=== PATIENT | female | born 1980 | race Caucasian/White ===

== ENCOUNTER → 2018-11-27 12:56 | Outpatient (CLI) | payer OTHER, SELFPAY ==
--- NOTE | 2018-11-27 12:59 | US_ITS ---
US transvaginal HISTORY: ITS.REASON: pelvic pain ORDERING PHYSICIAN: Julio Ferreira MD PATIENT AGE: 38 years Comparison: 11/23/2015 FINDINGS: The uterus is 7 x 3 x 4 cm with a combined endometrial thickness of 3 mm. In the fundus of the uterus there is a area of heterogeneous echogenicity measuring 2.7 x 2.5 cm suggesting a small uterine fibroid. The ovaries have an unremarkable appearance with bilateral ovarian blood flow. No cul-de-sac fluid. IMPRESSION: Probable uterine fibroid which appears unchanged when compared to the previous study otherwise negative pelvic ultrasound
== END ==
PROVIDERS: PCP Family Medicine; Visit Provider Obstetrics & Gynecology
DX: R10.2 Pelvic and perineal pain (principal)
CPT/HCPCS: 76830

== ENCOUNTER → 2018-12-17 09:14 | Outpatient (CLI) | payer OTHER, SELFPAY ==
--- NOTE | 2018-12-17 09:18 | MM_ITS ---
MM Dig screening mamm BI w/CAD CAD Screening COMPARISON: None, this is baseline INDICATION: There is a history of breast cancer in the patient's paternal grandmother and paternal aunt TECHNIQUE: Standard CC and MLO images were obtained. R2 CAD reviewed. FINDINGS: Scattered fibroglandular densities are seen in both breast on a background of fatty type breast parenchyma. There is slightly increased asymmetrically appearing glandular densities in the upper outer quadrant right breast. This likely is normal variation and glandular parenchyma however since is the baseline study recommend patient return for spot compression views of the area marked on the film there are no suspicious microcalcifications. IMPRESSION: Fibrofatty parenchyma with questionable asymmetric glandular parenchyma densities right breast versus normal variation recommend patient return for additional imaging BI-RADS Category: 0 Need Additional Imaging Evaluation RECOMMENDED FOLLOW-UP: IMM - IMMEDIATE FOLLOW-UP RECOMMENDED (A letter has been sent to the patient regarding results of the study.)
== END ==
PROVIDERS: PCP Family Medicine; Visit Provider Obstetrics & Gynecology
DX: Z12.31 Encounter for screening mammogram for malignant neoplasm of breast (principal)
CPT/HCPCS: 77067

== ENCOUNTER → 2018-12-22 09:45 | Outpatient (CLI) | payer OTHER, SELFPAY ==
[2018-12-22 09:49] LABS: Microscopic, Urine URINE MICROSCOPIC (MICROSCOPIC)
[2018-12-22 10:06] LABS: Basophils % 0.3 % (0.1-2.0); Eosinophils # 0.3 K/mm3 (0.0-0.4); Eosinophils % 3.5 % (0.1-12.0); Hematocrit 45.6 % (37.0-47.0); Hemoglobin 14.1 g/dL (12.2-16.2); Lymphocytes # 1.4 K/mm3 (0.7-4.5); Lymphocytes % 16.1 % (10-50); Mean Corpuscular HGB Conc 30.9 g/dL (31.8-35.4); Mean Corpuscular Hemoglobin 29.3 pg (27.0-31.2); Mean Corpuscular Volume 94.8 fl (81-99); Mean Platelet Volume 8.2 fl (7.4-10.4); Monocytes # 0.4 K/mm3 (0.1-1.0); Monocytes % 4.5 % (1.7-9.3); Neutrophils # 6.8 K/mm3 (1.8-7.8); Neutrophils % 75.7 % (37.0-80.0); Platelet Count 170 K/mm3 (142-424); Red Blood Count 4.81 M/mm3 (4.20-5.40)
[2018-12-22 10:10] LABS: Appearance,Urine CLEAR (Clear); Bilirubin,Urine Negative (Negative); Blood, Urine TRACE-I (Negative); Color,Urine YELLOW (Yellow); Glucose,Urine (UA) Negative (Negative); Ketones,Urine Negative (Negative); Leukocyte Esterase,Urine Negative (Negative); Nitrate,Urine Negative (Negative); PH,Urine 6.5 (5.0-8.5); Protein,Urine Negative (Negative); Urobilinogen,Urine 0.2 EU/dl (0.2)
[2018-12-22 10:18] LABS: Urine Pregnancy, HCG Qual. Negative (Negative)
[2018-12-22 10:24] LABS: Bacteria,Urine Trace /lpf; WBC,Urine Occasional #/hpf (0-3)
[2018-12-22 10:25] LABS: Mucus,Urine Trace /lpf
[2018-12-22 11:38] LABS: Alanine Aminotransferase 41 U/L (12-78); Albumin Level 3.4 gm/dL (3.4-5.0); Albumin/Globulin Ratio 1.1 (1.1-1.8); Alkaline Phosphatase 114 U/L (46-116); Anion Gap 14.2 mEq/L (5-15); Aspartate Amino Transferase 13 U/L (15-37); Bilirubin,Total 0.3 mg/dL (0.2-1.0); Blood Urea Nitrogen 14 mg/dL (7-18); Calcium 8.8 mg/dL (8.5-10.1); Carbon Dioxide 27 mmol/L (21.0-32.0); Chloride 105 mmol/L (98-107); Creatinine,Serum 0.88 mg/dL (0.55-1.02); Estimated Glomerular Filt Rate 72 ml/min (>60); GFR (African American) 87 ML/MIN (>60); Globulin 3.2 gm/dl (1.3-3.2); Glucose 97 mg/dL (74-106); Potassium 4.2 mmoL/L (3.5-5.1); Sodium 142 mmol/L (136-145); Total Protein,Serum 6.6 gm/dL (6.4-8.2)
[2018-12-22 11:49] LABS: Thyroid Stimulating Hormone 2.61 uIU/ml (0.358-3.740)
[2018-12-23 17:48] LABS: FSH 4.4 mIU/mL (.); LH 3.4 mIU/mL (.)
[2018-12-24 19:11] LABS: Testosterone,Free 1.4 pg/mL (0.0-4.2)
== END ==
PROVIDERS: Visit Provider Obstetrics & Gynecology
DX: Z01.818 Encounter for other preprocedural examination (principal); N93.8 Other specified abnormal uterine and vaginal bleeding
CPT/HCPCS: 36415; 80053; 81001; 81025; 83001; 83002; 84402; 84443; 85025

== ENCOUNTER → 2019-01-08 13:16 | Outpatient (CLI) | payer OTHER, SELFPAY ==
--- NOTE | 2019-01-08 13:18 | MM_ITS ---
MM Dig mamm DX unilat RT CAD COMPARISON: Baseline digital mammogram with CAD 12/17/2018 INDICATION: Additional views of possible asymmetric densities right breast TECHNIQUE: Spot compression MLO and CC views and 90 degrees lateral view. FINDINGS: The additional views appear to suggest an area of asymmetric but normal fibroglandular densities upper outer quadrant. There is no persistent or suspicious lesion identified on the additional views. IMPRESSION: Essentially negative problem-solving views BI-RADS Category: 1 Negative RECOMMENDED FOLLOW-UP: 1YR - 1 YEAR FOLLOW-UP (A letter has been sent to the patient regarding results of the study.)
== END ==
PROVIDERS: PCP Family Medicine; Visit Provider Obstetrics & Gynecology
DX: R92.8 Other abnormal and inconclusive findings on diagnostic imaging of breast (principal)
CPT/HCPCS: 77065

== ENCOUNTER → 2019-01-19 09:49 | Outpatient (CLI) | payer OTHER, SELFPAY ==
--- NOTE | 2019-01-19 09:50 | US_ITS ---
US breast RT complete Ordering Physician: Julio Ferreira MD Patient Age: 38 years: Female HISTORY: ITS.REASON: BREAST PAIN TECHNIQUE: Ultrasound right breast including axillary survey/MW COMPARISON : Mammogram 01/08/2019 & 12/17/2018 FINDINGS Survey of the entire right breast was performed including axillary imaging Would only note a small cystic area at 10:00 at the upper outer quadrant right breast. This measures up to 6.9 mm size . Moderate wall thickness. Overall benign appearance. This may correspond with some minimal nodularity at the right breast seen on previous studies. If pain persist persist you may want to consider a follow-up mammogram and ultrasound 6 months. Otherwise one year the adequate.. As you are aware, pain arises from multiple other causes and does not indicate underlying neoplasm but still warrants attention. IMPRESSION: Ultrasound reveals a small 6.8 x 4.7 mm cystic area at 10:00 right breast. This corresponds with some minimal nodularity here on recent mammogram. Follow up mammogram 1 year adequate (Although if breast pain should persist might consider 6-8 month follow-up right mammogram & ultrasound) BI-RADS 2. Benign appearing findings RECOMMENDATION.:. Follow-up mammogram 1 year. Although if breast pain should persist might consider 6 month follow-up mammogram ultrasound
== END ==
PROVIDERS: PCP Family Medicine; Visit Provider Obstetrics & Gynecology
DX: N64.4 Mastodynia (principal)
CPT/HCPCS: 76641

== ENCOUNTER → 2019-08-11 10:12 | Outpatient (CLI) | payer MEDICAID, SELFPAY ==
--- NOTE | 2019-08-11 10:12 | US_ITS ---
PROCEDURE: US BREAST RT COMPLETE CLINICAL INDICATION: 6-monthh f/u Follow-up breast abnormality COMPARISON: DIG MAMM-DX UNI-RT from 01/08/2019 BREASTRT US breast RT complete from 01/19/2019 FINDINGS: In the outer aspect right breast there is a 4 x 5 mm hypoechoic abnormality which may represent a complex cyst wider than tall with questionable through transmission of sound.. Overall not significantly changed IMPRESSION: BI-RADS category 3 probably benign finding/complex cyst 10 o'clock right breast. Recommend continued six-month follow-up. At that time bilateral mammogram is due as well. Dictated by: Alessandro Wood MD 08/23/2019 09:32 Electronically signed by Alessandro Wood MD in [place] 08/23/2019 09:32
== END ==
PROVIDERS: PCP Family Medicine; Visit Provider Obstetrics & Gynecology
DX: R92.8 Other abnormal and inconclusive findings on diagnostic imaging of breast (principal)
CPT/HCPCS: 76641

== ENCOUNTER → 2020-02-23 14:22 | Outpatient (CLI) | payer MEDICAID, SELFPAY ==
--- NOTE | 2020-02-23 14:22 | MM_ITS ---
PROCEDURE: MM DIG MAMM BI DX W/CAD Digital Breast Tomosynthesis Included CLINICAL INDICATION: Dx Mamm right breast- abnormal mamm COMPARISON: MG DIG MAMM-SCREEN CHARLY from 12/17/2018 MG DIG MAMM-DX UNI-RT from 01/08/2019 US US BREAST RT COMPLETE from 03/01/2020 TECHNIQUE: Standard CC and MLO images and 3D Tomosynthesis was obtained. R2 CAD reviewed. Spot compression views of the right breast were obtained. FINDINGS: In both breasts. Again noted is the asymmetric density upper-outer quadrant right breast with slightly irregular borders. Terrance images however demonstrate well-defined smooth borders. The lesion is unchanged in size and overall appearance from the previous 2 mammograms. Ultrasound performed same date showed a stable small hypoechoic lesion with internal echoes likely representing a complex cyst. There is no new or suspicious lesion in either breast and no suspicious microcalcifications. IMPRESSION: Fibrofatty parenchyma with no suspicious lesions seen BI-RAD Category: 2 Benign Finding(s) FOLLOW-UP: 1YR 1 Year Follow-up (A letter has been sent to the patient regarding results of the study.) Dictated by: Dr. Srikanth Tang MD 03/03/2020 10:21 Dr. Srikanth Tang MD in [place] 03/03/2020 10:21
== END ==
PROVIDERS: PCP Family Medicine; Visit Provider Obstetrics & Gynecology
DX: R92.8 Other abnormal and inconclusive findings on diagnostic imaging of breast (principal)
CPT/HCPCS: 77062; 77066; G0279

== ENCOUNTER → 2020-03-01 09:11 | Outpatient (CLI) | payer MEDICAID, SELFPAY ==
--- NOTE | 2020-03-01 09:11 | US_ITS ---
PROCEDURE: US BREAST RT COMPLETE CLINICAL INDICATION: US Right Breast-Abnormal Mamm COMPARISON: US US BREAST RT COMPLETE from 08/11/2019 FINDINGS: Noted is a small hypoechoic oval lesion wider than tall 10 o'clock position outer breast measuring 0.8 x 0.5 by 0.6 cm. This shows internal echoes as seen on the previous exam. This likely is a complex cyst and is stable in overall appearance compared to the previous study. There are 2 normal appearing nodes in the axilla. IMPRESSION: Stable benign-appearing and likely complex cyst and no further evaluation is indicated at this time. Dictated by: Dr. Srikanth Tang MD 03/03/2020 10:40 Dr. Srikanth Tang MD in [place] 03/03/2020 10:40
== END ==
PROVIDERS: PCP Family Medicine; Visit Provider Obstetrics & Gynecology
DX: R92.8 Other abnormal and inconclusive findings on diagnostic imaging of breast (principal)
CPT/HCPCS: 76641

== ENCOUNTER → 2021-04-26 12:24 | Outpatient (CLI) | payer MEDICAID, SELFPAY ==
--- NOTE | 2021-04-26 12:28 | MM_ITS ---
PROCEDURE: MM DIG SCREENING MAMM BI W/CAD Digital Breast Tomosynthesis Included CLINICAL INDICATION: screening mammogram There is a history of breast cancer in the patient's paternal grandmother and paternal aunt COMPARISON: MG DIG MAMM-SCREEN CHARLY from 12/17/2018 MG DIG MAMM-DX UNI-RT from 01/08/2019 MG MM DIG MAMM BI DX W/CAD from 02/23/2020 TECHNIQUE: Standard CC and MLO images and 3D Tomosynthesis was obtained. R2 CAD reviewed. FINDINGS: The breasts are composed primarily of fat with minimal scattered fibroglandular densities throughout each breast. There is a stable asymmetric density upper-outer quadrant right breast which was shown to be secondary to a complex cyst on previous ultrasound exam. This is stable on mammograms dating back to 12/17/2018. However there is a new asymmetric density upper-outer quadrant left breast with somewhat irregular borders. Recommend the patient return for spot compression views and ultrasound for additional evaluation. There are no suspicious microcalcifications. IMPRESSION: Fatty type breast parenchyma with new slightly suspicious asymmetric density left breast BI-RAD Category: 0 Need Additional Imaging Evaluation FOLLOW-UP: IMM Immediate Follow-up Recommended (A letter has been sent to the patient regarding results of the study.) Dictated by: Dr. Srikanth Tang MD 04/27/2021 13:52 Dr. Srikanth Tang MD in [place] 04/27/2021 13:52
== END ==
PROVIDERS: PCP Family Medicine; Visit Provider Obstetrics & Gynecology
DX: Z12.31 Encounter for screening mammogram for malignant neoplasm of breast (principal)
CPT/HCPCS: 77063; 77067

== ENCOUNTER → 2021-06-12 13:27 | Outpatient (CLI) | payer MEDICAID, SELFPAY ==
--- NOTE | 2021-06-12 13:28 | MM_ITS ---
PROCEDURE INFORMATION: Exam: US Left Breast, Complete MG Left Diagnostic Breast Tomosynthesis Exam date and time: 06/12/2021 1:28 PM Age: 40 years old Clinical indication: Patient recalled for further evaluation a questionable left asymmetric density TECHNIQUE: Imaging protocol: Complete ultrasound of all four quadrants of the Left breast and the retroareolar regions, including ultrasound of the axilla when performed. Left Diagnostic tomosynthesis and 2D mammography including computer-aided detection (CAD) when performed. Unilateral or bilateral exam. COMPARISON: 1. MG MM DIG SCREENING MAMM BI W/CAD 04/26/2021 1:02 PM 2. MG MM DIG MAMM BI DX W/CAD 02/23/2020 2:33 PM FINDINGS: MAMMOGRAPHY: Digital diagnostic spot compression views of the left breast and repeat complete left mammogram in the CC and 90 degree lateral projections do not demonstrate any definitive persistent mass lesion in 2 projections. No suspicious asymmetries are identified. No irregular masses are seen. ULTRASOUND: Sonographic images of the left breast including the retroareolar region, all 4 quadrants and the axilla do not demonstrate any solid masses. Incidental 0.4 cm cyst in the left supra-areolar region. Incidental subcentimeter lipoma in the left 2 o'clock axis. No architectural distortion or acoustical shadowing. No skin thickening or axillary adenopathy. IMPRESSION: No mammographic or sonographic evidence of malignancy. Annual bilateral mammographic screening is recommended unless otherwise clinically indicated. ASSESSMENT: BI-RADS Category 2: Benign
== END ==
PROVIDERS: PCP Family Medicine; Visit Provider Obstetrics & Gynecology
DX: R92.8 Other abnormal and inconclusive findings on diagnostic imaging of breast (principal)
CPT/HCPCS: 76641; 77061; 77065; G0279